=== PATIENT | male | born 1985 | race Caucasian/White ===

== ENCOUNTER 2019-11-20 09:52 | Emergency (ER) | payer OTHER, SELFPAY ==
--- NOTE | ~2019-11-20 | XR_ITS ---
XR chest 2V DATE: 11/20/2019 10:40 INDICATION: Chest pain and feeling of the chest, after sneezing TECHNIQUE: PA and lateral views COMPARISON: None FINDINGS: Normal heart size. No hilar or mediastinal enlargement. No pulmonary infiltrate or consolid ation, pleural effusion or pulmonary vascular congestion or pneumothorax. Minimal thoracic scoliosis. IMPRESSION: No active cardiopulmonary disease Reviewed, dictated and finalized at location A.
--- NOTE | ~2019-11-20 | XR_ITS ---
EXAMINATION: XR thoracic spine 3V EXAM DATE: 11/20/2019 10:40 INDICATION: Sneezed, right-sided pop sensation and mid back pain. TECHNIQUE: Frontal and lateral projections of the thoracic spine as well as lateral swimmers projecti on of the upper thoracic spine for interpretation. There is no prior study for comparison. FINDINGS: Minimal mid thoracic dextrocurvature. Evidence of minimal mid thoracic disc disease. There are no acute fractures identified. The vertebral bodies are aligned in the AP dimension. Vertebral b lorenzo heights are maintained. Paraspinal soft tissue is unremarkable. IMPRESSION: Minimal mid thoracic dextrocurvature and disc disease. Reviewed, dictated and finalized at location B.
[2019-11-20 10:00] VITALS: BP 154/78; PULSE 96; RESP 18; TEMP 36.3; O2SAT 97
[2019-11-20] MEDS: KETOROLAC (*BKC) 60 MG/2 ML VIAL 30 MG IM (10:21)
--- NOTE | 2019-11-20 10:30 | ED.BACK ---
HPI - Back Pain/Injury General Chief Complaint: Back Pain/Injury <Andrew Alejandro PA-C - Last Filed: 11/20/19 16:03> Stated Complaint: mid back pain after sneeze <ETHAN Borrero Last Filed: 11/20/19 16:03> Time Seen by Provider: 11/20/19 10:09 <ETHAN Borrero Last Filed: 11/20/19 16:03> Source: patient <ETHAN Borrero Last Filed: 11/20/19 16:03> Mode of arrival: ambulatory <ETHAN Borrero Last Filed: 11/20/19 16:03> Limitations: no limitations <ETHAN Borrero Last Filed: 11/20/19 16:03> History of Present Illness HPI Narrative: Patient presents with chief complaint of pain to his thoracic area that exacerbated after sneezing this morning. Patient states that he has been experiencing some soreness to the area with reaching and rotation but he has been taking extra for Tylenol in the discomfort has been improving over the past week. Patient states that he sneezed this morning and felt a popping sensation to the area that made him gas. Patient states after sometime in for extra strength Tylenol the discomfort greatly improved. He denies chest pain, shortness of breath, nausea, vomiting, fever, chills, cough. He denies any direct trauma or injury to the area he denies prior fractures or injuries. Patient states that he contacted his mother who is a nurse for spinal specialist who recommended that he come to the emergency department for imaging. Patient denies any other chronic medical conditions or daily medications. Patient denies any other symptoms or concerns.+ <ETHAN Borrero Last Filed: 11/20/19 16:03> Related Data Allergies/Adverse Reactions: Allergies Allergy/AdvReac Type Severity Reaction Status Date / Time No Known Allergies Allergy Verified 11/20/19 10:06 <ETHAN Borrero Last Filed: 11/20/19 16:03> Review of Systems Review of Systems: Narrative: CONSTITUTIONAL: Denies fever, chills, or sweats. EYES: Denies visual changes, redness, or discharge. ENT: Denies rhinorrhea, congestion, sore throat, or otalgia. CARDIOVASCULAR: Denies chest pain, palpitations, or edema. RESPIRATORY: Denies cough or dyspnea. GASTROINTESTINAL: Denies abdominal pain, nausea, vomiting, or diarrhea. GENITOURINARY: Denies dysuria or hematuria. SKIN: Denies rash or itching. MUSCULOSKELETAL: reports back pain and myalgia, Denies joint pain NEUROLOGIC: Denies headache, numbness, dizziness, or weakness. PSYCHIATRIC: Denies anxiety or depression. <Andrew Alejandro PA-C - Last Filed: 11/20/19 16:03> [facility] Social History Social History: Social History (Updated 11/20/19 @ 11:06 by Andrew Alejandro PA-C) Smoking status: Never smoker Alcohol intake: unknown Substance use: unknown <Andrew Alejandro PA-C - Last Filed: 11/20/19 16:03> Exam Narrative: Exam Narrative: GENERAL: Well-appearing, well-nourished. HEAD: Normocephalic, atraumatic. EYES: PERRLA and EOMI. ENT: Nares clear, no rhinorrhea or epistaxis. Mucous membranes moist. Oropharynx without tonsillar hypertrophy exudate or other lesions. Bilateral TMs pearly aguilar nonbulging NECK: Supple. No adenopathy or masses. No vertebral tenderness or loss of ROM. CHEST: Clear to auscultation. No respiratory distress. No wheezes rales or rhonchi HEART: Regular rate and rhythm. Normal peripheral pulses. BACK: No vertebral point tenderness with palpation. Pain with reaching right arm and rotation. No outward signs of injury. EXTREMITIES: No acute changes in ROM. No edema. SKIN: Warm, dry, no rash. NEURO: No focal deficits. Alert and oriented x3. PSYCH: Normal mood and affect. <Andrew Alejandro PA-C - Last Filed: 11/20/19 16:03> Course Vital Signs Vital signs: Vital Signs Temperature 97.4 F L 11/20/19 10:00 Pulse Rate 96 11/20/19 10:00 Respiratory Rate 18 11/20/19 10:00 Blood Pressure 154/78 H 11/20/19 10:00 Pulse Oximetry 97 11/20/19 10:00 Temperatur
== END 2019-11-20 11:44 | disposition home or self-care (01) ==
PROVIDERS: Emergency Provider General Practice
DX: S29.012A Strain of muscle and tendon of back wall of thorax, initial encounter (principal); M51.34 Other intervertebral disc degeneration, thoracic region; X50.9XXA Other and unspecified overexertion or strenuous movements or postures, initial encounter
CPT/HCPCS: 71046; 72072; 96372; 99283; J1885

== ENCOUNTER 2024-05-19 15:24 | Emergency (ER) | payer BC, SELFPAY ==
[2024-05-19 15:45] VITALS: BP 131/89; PULSE 78; RESP 16; TEMP 36.8; O2SAT 97
--- NOTE | 2024-05-19 16:18 | ED.UPPEXIN ---
HPI - Extremity Injury (Upper) General Chief Complaint: Extremity Injury, Upper Stated Complaint: Elbow Pain Time Seen by Provider: 05/19/24 16:22 Source: patient Mode of arrival: ambulatory Limitations: no limitations History of Present Illness HPI narrative: 38-year-old male presented for complaint of left elbow redness, swelling, and pain. Onset today. He denies known injury or specific overuse injury. Not taking anything for pain today. Related Data Allergies Allergy/AdvReac Type Severity Reaction Status Date / Time No Known Allergies Allergy Verified 05/19/24 15:42 Review of Systems Review of Systems: CONSTITUTIONAL: Denies body aches, fever, chills CARDIOVASCULAR: Denies chest pain, palpitations, or edema. RESPIRATORY: Denies cough or dyspnea. GASTROINTESTINAL: Denies abdominal pain, nausea, vomiting, or diarrhea. SKIN: Denies rash, itching, or wounds. MUSCULOSKELETAL: Reports left elbow pain NEUROLOGIC: Denies numbness, tingling, or weakness. All systems reviewed & are unremarkable except as noted in HPI and below PMFSH Family History Family History Grandparent Cancer Diabetes mellitus Hypertension Heart problem Cerebrovascular accident Grandparent Cancer Diabetes mellitus Hypertension Heart problem Social History Social History Smoking status: Never smoker Alcohol intake: current Drinks per week: 6 Substance use: never Substance use type: does not use Do You Feel Safe in your Home?: Yes Lack of Transportation: No Lack of Food: Never True Current Housing: I Have Housing Concerned About Future Housing: No Difficulty Paying Gas/Electric Bills: No Difficulty Paying for Meds: No Currently Unemployed: No Education: Bachelor's Degree Difficulty w/ Childcare or Family Care: No Living arrangements: with family Occupation/Education: occupation Gender identity (if verbalized by the patient): Male Comments At time of signature, I have reviewed and agree with nursing past medical, surgical, social and family history unless otherwise noted. Please see nursing chart for further information. There is no relevant family history pertinent to the presenting complaint Exam Narrative: GENERAL: Well-appearing CHEST: Speaks in full sentences. No respiratory distress. HEART: Regular rate and rhythm. Normal and equal peripheral pulses. EXTREMITIES: LUE has normal strength and sensation, left elbow was slightly decreased range of motion due to pain with movement. Moderate swelling and erythema noted to the elbow, tender with palpation. No open wounds, or obvious deformity; alignment normal, pulse palpable and equal bilaterally, skin warm, dry, pink. Capillary refill less than 3 seconds. SKIN: Warm, dry NEURO: Alert and oriented x3. PSYCH: Normal mood and affect Course Course Emergency Course: Patient is aware of diagnosis, understands and agrees to treatment plan. Anticipatory guidance given. Patient agrees to follow-up as directed and is aware of reasons to seek care at the emergency department. Portions of this record may have been created with voice recognition software Level of Care: Express Care Visit Vital Signs Vital signs: Vital Signs Temperature 98.2 F 05/19/24 15:45 Pulse Rate 78 05/19/24 15:45 Respiratory Rate 16 05/19/24 15:45 Blood Pressure 131/89 05/19/24 15:45 Pulse Oximetry 97 05/19/24 15:45 Oxygen Delivery Room Air 05/19/24 15:45 Temperature 98.2 F 05/19/24 15:45 Pulse Rate 78 05/19/24 15:45 Respiratory Rate 16 05/19/24 15:45 Blood Pressure 131/89 05/19/24 15:45 Pulse Oximetry 97 05/19/24 15:45 Oxygen Delivery Room Air 05/19/24 15:45 Reviewed MDM - Extremity Injury (Upper) MDM Narrative Medical decision making narrative: Discussed physical exam finding c/w left elbow bursitis. Provided with ortho referral. Patient is scheduled with PCP in 1 week. Advised supportive measures and signs/symptoms to go to the ER. Pt is appropriate for outpt treatment and f/u. Differential Diagnosis Differential diagnosis: Likely other (osteoarthritis, elbow dislocation, septic bursitis, epicondylitis, biceps tendon rupture, tendonitis, fracture) Discharge Plan Discharge Clinical Impression: Bursitis of left elbow Patient Disposition: Home Condition: Stable Instructions: Antibiotic Form, Elbow Bursitis (ED) Additional Instructions: Rest; no lifting, pushing, pulling, or pressure on to the elbow joint Apply ice 15-20 minute intervals several times a day Keep it wrapped with JAGRUTI or use elbow support Take the steroid as directed Tylenol 1000mg every 8 hours as needed Follow up with your primary care provider as scheduled next week Go to the ER for any worsening symptoms or concerns Patient Language: Tongan Prescriptions: New prednisone 50 mg tablet 50 mg PO DAILY Qty: 5 0RF No Action atorvastatin 20 mg tablet 20 mg PO DAILY Qty: 90 1RF Follow-up/Referrals: Arnav Paris MD [Physician] - PHYSICIAN,PRODUCTION ASSEMBLY SUPERVISOR [Primary Care Provider] - Time of Disposition: 16:29
== END 2024-05-19 16:35 | disposition home or self-care (01) ==
PROVIDERS: Emergency Provider Nurse Practitioner Family
DX: M70.32 Other bursitis of elbow, left elbow (principal); E78.00 Pure hypercholesterolemia, unspecified
CPT/HCPCS: 99213; G0463

== ENCOUNTER 2024-08-06 13:21 | Emergency (ER) | payer BC, SELFPAY ==
[2024-08-06 13:52] VITALS: BP 134/74; PULSE 99; RESP 16; TEMP 37.5; O2SAT 97
[2024-08-06 14:01] LABS: EDSTREPNEGPOS1 Negative (Negative)
[2024-08-06 14:13] LABS: EDCOVIDSCREEN Negative (Negative); EDINFLUASCREEN Negative (Negative); EDINFLUBSCREEN Negative (Negative)
--- NOTE | 2024-08-06 14:46 | ED.URI ---
HPI - URI/Sore Throat General Chief Complaint: Upper Respiratory Infection Stated Complaint: flu like symptoms Time Seen by Provider: 08/06/24 14:00 Source: patient and RN notes reviewed Mode of arrival: ambulatory Limitations: no limitations History of Present Illness HPI Narrative: 38-year-old male presents Express Care complaining of upper respiratory symptoms for approximately 2 days. Patient reports having fevers, right ear fullness, congestion, sore throat, dry cough, body aches, malaise. Patient denies any other upper respiratory symptoms. Patient any chest pain, shortness of breath, nausea vomiting, diarrhea, or abdominal pain. Patient has been using [id number] flu/cold medication with some relief. Related Data Allergies Allergy/AdvReac Type Severity Reaction Status Date / Time No Known Allergies Allergy Verified 08/06/24 13:53 Review of Systems Review of Systems: CONSTITUTIONAL: Positive for fevers, body aches. Negative for, chills, or sweats. EYES: Denies visual changes, redness, or discharge. ENT: Positive for rhinorrhea, congestion, sore throat, ear fullness. Negative for otalgia. CARDIOVASCULAR: Denies chest pain, palpitations, or edema. RESPIRATORY: Positive for cough. Negative for difficulty breathing, wheezing, dyspnea. GASTROINTESTINAL: Denies abdominal pain, nausea, vomiting, or diarrhea. GENITOURINARY: Denies dysuria or hematuria. SKIN: Denies rash or itching. MUSCULOSKELETAL: Denies back pain, joint pain, or myalgia. NEUROLOGIC: Denies headache, numbness, or weakness. PSYCHIATRIC: Denies anxiety or depression. All other systems reviewed are negative, except as documented in HPI. [facility] Family History Family History Grandparent Cancer Diabetes mellitus Hypertension Heart problem Cerebrovascular accident Grandparent Cancer Diabetes mellitus Hypertension Heart problem Social History Social History Smoking status: Never smoker Alcohol intake: current Drinks per week: 6 Substance use: never Substance use type: does not use Do You Feel Safe in your Home?: Yes Lack of Transportation: No Lack of Food: Never True Current Housing: I Have Housing Concerned About Future Housing: No Difficulty Paying Gas/Electric Bills: No Difficulty Paying for Meds: No Currently Unemployed: No Education: Bachelor's Degree Difficulty w/ Childcare or Family Care: No Living arrangements: with family Occupation/Education: occupation Gender identity (if verbalized by the patient): Male Comments At the time of my signature, I reviewed and agree with the nursing past medical, surgical, social, and family history. There is no relevant family history pertinent to the patient complaint. Exam Narrative: GENERAL: This is a well-nourished, well-developed adult, in no apparent distress. They are non ill-appearing, nontoxic appearing. HEAD: normocephalic, atraumatic. EYES: Sclera clear/white. Conjunctiva normal. Vision is grossly intact. Extraocular movements intact EARS: External ears normal, auditory canals clear and without drainage, left TM normal without perforation. Right TM erythematous with suppuration. Right TM intact. Hearing grossly intact. NOSE: External nose normal with no obvious nasal discharge, nasal turbinates erythematous, no rhinorrhea. THROAT: Mucous membranes moist, posterior pharynx erythematous. Uvula midline. Postnasal drip present. NECK: Neck supple, non-tender without lymphadenopathy, masses or thyromegaly. CARDIOVASCULAR: Regular rate and rhythm without murmurs, gallops, or rubs. RESPIRATORY: Clear to auscultation. Breath sounds equal bilaterally. No wheezes, rales, or rhonchi. GASTROINTESTINAL: Abdomen soft, non-tender, nondistended. Bowel sounds are active. No hepato-splenomegaly, or palpable masses. No guarding. SKIN: warm, Dry, intact with no suspicious lesions or rash, good texture and turgor. NEURO: awake, alert, and oriented to person, place and time. There were no obvious focal neurologic abnormalities. EXTREMITIES: No joint tenderness, effusion, or edema noted. BACK: Nontender without deformity. No CVA tenderness. Course Course Emergency Course: Portions of this record may have been created with voice recognition software Level of Care: Express Care Visit Vital Signs Vital signs: Vital Signs Temperature 99.5 F 08/06/24 13:52 Pulse Rate 99 08/06/24 13:52 Respiratory Rate 16 08/06/24 13:52 Blood Pressure 134/74 08/06/24 13:52 Pulse Oximetry 97 08/06/24 13:52 Temperature 99.5 F 08/06/24 13:52 Pulse Rate 99 08/06/24 13:52 Respiratory Rate 16 08/06/24 13:52 Blood Pressure 134/74 08/06/24 13:52 Pulse Oximetry 97 08/06/24 13:52 Reviewed MDM - URI/Sore Throat MDM Narrative Medical decision making narrative: Rapid COVID, flu, strep were negative. A throat culture is pending. Likely patient has a viral upper respiratory infection. However there is evidence of a right-sided otitis media. Go ahead and treat otitis media with amoxicillin. Also prescribe benzonatate tablets as needed for cough. Discussed physical exam findings. Advised supportive measures and signs/symptoms to go to the ER. Pt is appropriate for outpt treatment and f/u. Differential Diagnosis Differential diagnosis: Likely upper respiratory infection, otitis media, viral infection and pharyngitis Lab Data Attestation: I reviewed the patient's lab results. Labs: Lab Results 08/06/24 08/06/24 Range/Units 13:59 14:11 POC Influenza A Ag Negative (Negative) POC Influenza B Ag Negative (Negative) POC SARS CoV-2 Ag Negative (Negative) POC Grp A Strep Screen Negative (Negative) Critical Care Time Critical Care Time Critical Care Time: No Discharge Plan Discharge Clinical Impression: Upper respiratory infection Qualifiers: URI type: unspecified viral URI Qualified Code(s): J06.9 - Acute upper respiratory infection, unspecified Otitis media Qualifiers: Otitis media type: suppurative Chronicity: acute Laterality: right Recurrence: non-recurrent Spontaneous tympanic membrane rupture: without spontaneous rupture Qualified Code(s): H66.001 - Acute suppurative otitis media without spontaneous rupture of ear drum, right ear Patient Disposition: Home Condition: Stable Instructions: Antibiotic Form, Ear Infection (GEN), Upper Respiratory Infection (ED) Additional Instructions: Your COVID, flu, strep were negative today. Throat culture will be sent off an you will be contacted if it is positive for strep. It appears to have you have a ear infection to her right ear. Take antibiotics as directed. Please complete the course evening to start to feel better. It is also likely that you have a viral illness as well, antibiotics will not work on a viral illness. Viral illnesses typically last 7-10 days. Recommend antihistamine such as Benadryl, Zyrtec or Meghan for sinus congestion Flonase nasal spray, 2 spray in each nostril once daily until symptoms improve Do not use Afrin for more than 3 days. Take benzonatate tablets as needed for cough. Symptomatic treatment includes: rest, fluids, and increase humidity of the air at home. Tylenol or ibuprofen as needed for pain or fevers. Please schedule a follow-up visit with your personal physician for further evaluation and treatment and 1 week especially for not feeling better. If your symptoms persist, change or worsen significantly, he developed breathing problems, or any other concerns, go to the emergency department for further evaluation. Patient Language: Kazakh Prescriptions: New amoxicillin 875 mg tablet 875 mg PO Q12H 7 Days Qty: 14 0RF benzonatate 100 mg capsule 100 mg PO TID PRN (Reason: cough) Qty: 20 0RF No Action atorvastatin 20 mg tablet 20 mg PO DAILY Qty: 90 1RF Follow-up/Referrals: Deanna La DO [Primary Care Provider] - Time of Disposition: 14:17
== END 2024-08-06 14:23 | disposition home or self-care (01) ==
PROVIDERS: PCP Family Medicine
DX: J06.9 Acute upper respiratory infection, unspecified (principal); H66.001 Acute suppurative otitis media without spontaneous rupture of ear drum, right ear; Z20.822 Contact with and (suspected) exposure to COVID-19
CPT/HCPCS: 87081; 87426; 87804; 87880; 99213; G0463